=== PATIENT | female | born 1995 | race African-American/Black ===

== ENCOUNTER 2020-04-16 05:48 | Inpatient (IN) ==
[2020-04-16] MEDS ORDERED: FAMOTIDINE 20 MG/2 ML VIAL IV ONE (05:55)
[2020-04-16] MEDS ORDERED: CITRIC ACID/SODIUM CITRATE 30 ML UDCUP PO ONE (05:55)
[2020-04-16] MEDS: LACTATED RINGERS 1,000 ML IV SCH ×2 (06:20→21:28)
[2020-04-16 06:42] LABS: Basophils % 0.2 % (0.0-0.8); Eosinophils % 0.1 % (0.00-10.9); Hematocrit 34.9 VOL% (35.7-47.0); Immature Granulocytes % 0.6 %; Immature Granulocytes Absolute 0.07 #; Lymphocytes # 2.5 10*3/uL (1.4-4.0); Lymphocytes % 21.1 % (21.3-54.2); Mean Corpuscular HGB Conc 31.5 GM/DL (32-36); Mean Corpuscular Volume 77.6 FL (87-102); Monocytes % 6.3 % (1.7-12.7); Neutrophils % 71.7 % (38.7-73.9); Platelet Count 205 T/CUMM (130-400); Red Cell Distribution Width 14.8 % (9.3-17.3); White Blood Count 11.8 T/CUMM (4-12)
[2020-04-16] MEDS ORDERED: ceFAZolin 3,000 MG in SYRINGE 1 EACH IV ONE (07:00)
[2020-04-16 07:02] LABS: Albumin 2.3 G/DL (3.4-5.0); Bilirubin,Total 0.8 MG/DL (0.2-1.0); Calcium 9.4 MG/DL (8.5-10.1); Total Protein 7.5 G/DL (6.4-8.3)
[2020-04-16] MEDS ORDERED: CARBOPROST TROMETHAMINE 250 MCG/ML AMP IM ONE (08:02)
[2020-04-16] MEDS ORDERED: miSOPROStoL 200 MCG TABLET ONE (08:02)
[2020-04-16] MEDS ORDERED: METHYLERGONOVINE 0.2 MG/1 ML AMP ONE (08:02)
[2020-04-16] MEDS ORDERED: TRANEXAMIC ACID 1,000 MG/10 ML VIAL ONE (08:02)
[2020-04-16] MEDS ORDERED: PHENYLEPHRINE 1 MG/10 ML SYRINGE IV ONE (08:04)
[2020-04-16] MEDS ORDERED: BUPIVACAINE SPINAL 0.75% 2 ML AMP SPINAL ONE (08:04)
[2020-04-16] MEDS ORDERED: ONDANSETRON 4 MG/2 ML VIAL ONE (08:04)
[2020-04-16] MEDS ORDERED: MORPHINE 10 MG/10 ML VIAL ONE (08:04)
[2020-04-16] MEDS ORDERED: OXYTOCIN 10 UNIT/ML VIAL IM ONE (08:07)
[2020-04-16] MEDS ORDERED: OXYTOCIN/LR 20 UNIT/1,000 ML BAG IV ONE ×2 (08:11→10:42)
[2020-04-16 10:31] LABS: Cord Venous Blood HCO3 25.3 MMOL/L; Cord Venous Blood PCO2 49.4 MMHG; Cord Venous Blood PO2 36.9
[2020-04-16 10:32] LABS: Cord Arterial Blood HCO3 26.6 MMOL/L
[2020-04-16] MEDS ORDERED: DIPH/TET/ACEL PERT BOOSTER VACCINE 0.5 ML VIAL IM ONE (10:42)
[2020-04-16] MEDS ORDERED: ACETAMINOPHEN 325 MG TABLET PO PRN (10:42)
[2020-04-16] MEDS ORDERED: BENZOCAINE 20%/MENTHOL 0.5% SPRAY 56 GM CAN TOP PRN (10:42)
[2020-04-16] MEDS ORDERED: ONDANSETRON 4 MG/2 ML VIAL IV PRN (10:42)
[2020-04-16] MEDS ORDERED: RHO(D) IMMUNE GLOBULIN 300 MCG SYRINGE IM ONE (10:42)
[2020-04-16] MEDS ORDERED: IBUPROFEN 800 MG TABLET PO PRN (10:42)
[2020-04-16] MEDS ORDERED: HYDROCORTISONE 2.5% RECTAL CREAM 30 GM TUBE TOP PRN (10:42)
[2020-04-16] MEDS ORDERED: oxyCODONE/ACETAMINOPHEN 5-325 MG TABLET PO PRN (10:42)
[2020-04-16] MEDS ORDERED: MEASLES/MUMPS/RUBELLA VACCINE 0.5 ML VIAL SUBCUT ONE (10:42)
[2020-04-16] MEDS ORDERED: WITCH HAZEL PADS 100/JAR TOP PRN (10:42)
[2020-04-16] MEDS ORDERED: BISACODYL 10 MG SUPP RECTAL PRN (10:42)
[2020-04-16] MEDS ORDERED: LANOLIN 50% CREAM 0.3 OZ TUBE TOP PRN (10:42)
[2020-04-16] MEDS ORDERED: propofoL 200 MG/20 ML VIAL IV ONE (10:58)
[2020-04-16] MEDS ORDERED: MIDAZOLAM 2 MG/2 ML VIAL ONE (10:58)
[2020-04-16] MEDS ORDERED: fentaNYL 100 MCG/2 ML VIAL ONE (10:58)
[2020-04-16] MEDS ORDERED: HYDROmorphone 2 MG/1 ML VIAL IV PRN (11:23)
[2020-04-16] MEDS ORDERED: diphenhydrAMINE 50 MG/1 ML VIAL IV PRN (11:23)
[2020-04-16] MEDS ORDERED: hydrOXYzine HCL 25 MG/1 ML VIAL IM PRN (11:23)
[2020-04-16] MEDS ORDERED: ACETAMINOPHEN 500 MG TABLET PO PRN (11:24)
[2020-04-16] MEDS ORDERED: KETOROLAC 30 MG/1 ML VIAL IV PRN (11:25)
[2020-04-16 12:29] LABS: Bacteria,Urine Many /HPF (Few); Bilirubin,Urine Negative (Negative); Blood, Urine Negative (Negative); Glucose,Urine (UA) Negative (Negative); Ketones,Urine 20 mg/dL (Negative); Mucus,Urine Few /LPF (Occasional); Nitrite,Urine Positive (Negative); Protein,Urine 30 MG/DL; RBC,Urine 1 /HPF (0-4); Squamous Epithelial Cell,Urine Occasional /HPF (0-10); Urine Appearance CLEAR (Clear); Urine Color Amber (Yellow); Urine Specific Gravity 1.028 (1.001-1.035); Urine Urobilinogen < 2.0 EU/DL (0.2-1.0); WBC,Urine 1 /HPF (0-6)
[2020-04-16] MEDS: ceFAZolin 2,000 MG in PREMIX 1 EACH IV SCH (18:15)
[2020-04-16] MEDS: DOCUSATE SODIUM 100 MG CAPSULE PO SCH (21:26)
[2020-04-16] MEDS: oxyCODONE/ACETAMINOPHEN 5-325 MG TABLET PO PRN (22:20)
[2020-04-17] MEDS: ceFAZolin 2,000 MG in PREMIX 1 EACH IV SCH (02:25)
[2020-04-17] MEDS: oxyCODONE/ACETAMINOPHEN 5-325 MG TABLET PO PRN ×2 (06:31→16:39)
[2020-04-17 06:42] LABS: Basophils % 0.2 % (0.0-0.8); Eosinophils # 0.1 10*3/uL (0.0-0.87); Eosinophils % 0.8 % (0.00-10.9); Hematocrit 30.7 VOL% (35.7-47.0); Hemoglobin 9.5 GM/DL (12.0-16.0); Immature Granulocytes % 0.5 %; Immature Granulocytes Absolute 0.06 #; Lymphocytes # 2.1 10*3/uL (1.4-4.0); Lymphocytes % 18.6 % (21.3-54.2); Mean Corpuscular HGB Conc 30.9 GM/DL (32-36); Mean Corpuscular Volume 77.7 FL (87-102); Mean Platelet Volume 12.8 FL (9.6-12.0); Monocytes % 7.8 % (1.7-12.7); Neutrophils % 72.1 % (38.7-73.9); Red Blood Count 3.95 MC/CUMM (3.8-5.5); Red Cell Distribution Width 14.9 % (9.3-17.3); White Blood Count 11.4 T/CUMM (4-12)
[2020-04-17 06:46] LABS: Platelet Count 163 T/CUMM (130-400)
[2020-04-17 07:01] LABS: Hypochromasia 1+; Microcytosis 1+; Platelet Estimate Adequate
[2020-04-17] MEDS ORDERED: SIMETHICONE CHEW 80 MG TABLET PO PRN (07:42)
[2020-04-17] MEDS: MAGNESIUM HYDROXIDE SUSP 30 ML UDCUP PO PRN ×2 (10:06→20:59)
[2020-04-17] MEDS: DOCUSATE SODIUM 100 MG CAPSULE PO SCH ×2 (10:06→20:59)
[2020-04-18] MEDS: DOCUSATE SODIUM 100 MG CAPSULE PO SCH (08:51)
[2020-04-18 09:01] VITALS: BP 130/51
[2020-04-18] MEDS ORDERED: NITROFURANTOIN MACRO/MONO 100 MG CAPSULE PO SCH (13:00)
== END 2020-04-18 12:55 | disposition home or self-care (01) | DRG 540 ==
LOC: N.LDOUT 05:48 → N.LD 05:50 → N.LDOUT 05:53 → N.LD 05:55 → N.OB 14:53
PROVIDERS: ADMIT Specialist; ATTEND Specialist
PROC: LDCSECT (ICD-10-PCS; 2020-04-16 08:30)